=== PATIENT | female | born 1980 | race Two or more races ===

== ENCOUNTER 2024-09-20 16:57 | Inpatient (IN) | payer OTHER ==
[~2024-09-20] VITALS: Ht 160 cm; Wt 59.0 kg
[2024-09-20] MEDS ORDERED: ONDANSETRON HCL 2 MG/ML VIAL ONE (19:22)
[2024-09-20] MEDS ORDERED: ACETAMINOPHEN 500 MG GEL..CAP PO ONE ×3 (19:22→23:36)
[2024-09-20] MEDS ORDERED: 0.9 % SODIUM CHLORIDE 500 ML IV ONE (19:30)
[2024-09-20] MEDS ORDERED: ONDANSETRON HCL 2 MG/ML VIAL IV ONE (19:30)
[2024-09-20 19:56] LABS: HEMATOCRIT 36.3 % (36.0-45.00); HEMOGLOBIN 12.3 g/dL (12.0-15.00); MEAN CELL VOLUME 87.9 fL (80.00-100.00); MEAN CORPUSCULAR HEMOGLOBIN 29.9 pg (27.00-32.0); PLATELET COUNT 277 K/uL (150-450); RED BLOOD COUNT 4.13 M/uL (4.00-6.00); RED CELL DISTRIBUTION WIDTH 13.3 % (11.5-14.5)
[2024-09-20 20:15] LABS: INR 1.1; PARTIAL THROMBOPLASTIN TIME 28.6 SECONDS (22.0-34.0); PROTHROMBIN TIME 11.9 SECONDS (9.0-11.5)
[2024-09-20 20:35] LABS: ALBUMIN 3.6 gm/dL (3.4-5.0); BILIRUBIN TOTAL 0.57 mg/dL (0.3-1.2); CALCIUM 9.2 mg/dL (8.5-10.1); CREATININE SERUM 0.66 mg/dL (0.55-1.02); GFR 97.29; GLOBULINA 4.6 G/DL (2.4-3.5); POTASSIUM 4.86 mEq/L (3.5-5.1); TOTAL PROTEIN 8.2 gm/dL (6.4-8.2)
[2024-09-20 20:57] LABS: URINE APPEARANCE Clear; URINE BILIRRUBIN Negative (NEGATIVE); URINE BLOOD Moderate; URINE COLOR Yellow; URINE GLUCOSE Negative (NEGATIVE); URINE KETONE Trace (NEGATIVE); URINE LEUKOCYTE Small; URINE NITRATE Negative; URINE PROTEIN Negative (NEGATIVE); URINE UROBILINOGEN 0.2 E.U./dl
[2024-09-20 21:01] LABS: URINE BACTERIA 2028.1 uL (0.0-1933); URINE EPITHELIAL CELLS 73.2 uL (0.0-38.8); URINE RBC 95.4 uL (0.0-20.8); URINE WBC 35.6 uL (0.0-23.2)
[2024-09-20 21:11] LABS: URINE CAST 0.29 uL (0.0-1.40)
[2024-09-20] MEDS ORDERED: ACETAMINOPHEN 500 MG GEL..CAP PO STA (23:31)
[2024-09-20] MEDS ORDERED: CEFTRIAXONE SODIUM 2,000 MG VIAL ONE (23:37)
[2024-09-20] MEDS ORDERED: FAMOTIDINE/PF 20 MG/2 ML VIAL ONE (23:37)
[2024-09-20] MEDS ORDERED: CEFTRIAXONE SODIUM 2,000 MG VIAL IV ONE (23:45)
[2024-09-20] MEDS ORDERED: FAMOTIDINE/PF 20 MG/2 ML VIAL IV ONE (23:45)
[2024-09-21] MEDS ORDERED: PIPERACILLIN/TAZOBACTAM SODIUM 3.375 GM VIAL IV STA (00:22)
[2024-09-21] MEDS ORDERED: PIPERACILLIN/TAZOBACTAM SODIUM 3.375 GM in 0.9 % SODIUM CHLORIDE 100 ML IV SCH ×2 (00:23→09:38)
[2024-09-21] MEDS ORDERED: MORPHINE SULFATE 4 MG/ML VIAL IV STA (00:29)
[2024-09-21] MEDS ORDERED: PIPERACILLIN/TAZOBACTAM SODIUM 3.375 GM VIAL IV ONE ×2 (00:35→19:11)
[2024-09-21 01:07] LABS: INR 1.12; PARTIAL THROMBOPLASTIN TIME 31.3 SECONDS (22.0-34.0); PROTHROMBIN TIME 12.1 SECONDS (9.0-11.5)
[2024-09-21] MEDS ORDERED: MORPHINE SULFATE 4 MG/ML CARTRIDGE IV PRN (09:45)
[2024-09-21] MEDS ORDERED: 0.9 % SODIUM CHLORIDE 1,000 ML IV SCH ×2 (09:45→16:15)
[2024-09-21] MEDS ORDERED: KETOROLAC TROMETHAMINE 30 MG VIAL IV PRN (13:30)
[2024-09-21] MEDS ORDERED: KETOROLAC TROMETHAMINE 30 MG VIAL ONE (16:23)
[2024-09-21] MEDS ORDERED: MORPHINE SULFATE 4 MG/ML VIAL IV ONE ×3 (17:30→20:00)
[2024-09-21 19:45] VITALS: BP 105/73; O2SAT 100
[2024-09-22 01:27] VITALS: BP 102/69; O2SAT 100
[2024-09-22 07:53] LABS: CALCIUM 8.1 mg/dL (8.5-10.1); CREATININE SERUM 0.56 mg/dL (0.55-1.02); GFR 117.6; POTASSIUM 3.87 mEq/L (3.5-5.1)
[2024-09-22 08:05] LABS: HEMATOCRIT 29.8 % (36.0-45.00); HEMOGLOBIN 10.4 g/dL (12.0-15.00); MEAN CELL VOLUME 89.1 fL (80.00-100.00); MEAN CORPUSCULAR HGB CONC 34.8 g/dl (32.0-36.0); PLATELET COUNT 229 K/uL (150-450); RED BLOOD COUNT 3.34 M/uL (4.00-6.00); RED CELL DISTRIBUTION WIDTH 13.3 % (11.5-14.5)
[2024-09-22 09:18] VITALS: BP 101/64; O2SAT 98
== END 2024-09-22 20:30 | disposition home or self-care (01) | DRG 331 ==
LOC: ER 16:59 → SURH 09-21 09:31 → SEC-K 09-21 09:31 → SURH 09-21 16:11
PROVIDERS: Emergency Medicine; Surgery; ADMIT Student in an Organized Health Care Education/Training Program; ATTEND Student in an Organized Health Care Education/Training Program
PROC: 0WQF4ZZ Repair Abdominal Wall, Percutaneous Endoscopic Approach (ICD-10-PCS; 2024-09-21)
PROC: 0DTJ4ZZ Resection of Appendix, Percutaneous Endoscopic Approach (ICD-10-PCS; 2024-09-21)
PROC: 0DBH4ZZ Excision of Cecum, Percutaneous Endoscopic Approach (ICD-10-PCS; principal; 2024-09-21 15:00)
DX: K35.33 Acute appendicitis with perforation, localized peritonitis, and gangrene, with abscess (principal); K43.9 Ventral hernia without obstruction or gangrene